=== PATIENT | female | born 1995 | race Caucasian/White ===

== ENCOUNTER 2017-08-10 18:56 | Emergency (ER) | payer OTHER ==
--- NOTE | 2017-08-10 20:18 | UC ---
Skin Complaint HPI - HPI Summary HPI Summary: 3 DAYS OF PAINFUL VESICULAR RASH LEFT UPPER BACK WRAPPING AROUND TO FRONT. TENDER. FEELS "BURNING". NOT ITCHY. NO NEW EXPOSURES. HAS SOME BODY ACHES AND FEELS "HOT". PT GOT VERY DRUNK PRIOR TO ONSET. IS A STUDENT AT [employer] SO HAS MODERATE AMOUNT OF STRESS AND DOES NOT ALWAYS GET ENOUGH REST. - History of Current Complaint Chief Complaint: UCSkin Time Seen by Provider: 08/10/17 19:52 Stated Complaint: SKIN COMPLAINT Hx Obtained From: Patient Onset/Duration: Sudden Onset, Lasting Days, Still Present Timing: Constant Onset Severity: Moderate Current Severity: Severe Pain Intensity: 10 Pain Scale Used: 0-10 Numeric Character: Pain, Redness Aggravating Factor(s): Touch Alleviating Factor(s): Nothing Associated Signs & Symptoms: Positive: Rash, Tenderness. Negative: Nausea, Fever - Allergy/Home Medications Allergies/Adverse Reactions: Allergies Allergy/AdvReac Type Severity Reaction Status Date / Time No Known Allergies Allergy Verified 08/10/17 19:45 Home Medications: Home Medications Etonogestrel [Nexplanon] 68 mg SQ DAILY 08/10/17 [History Confirmed 08/10/17] Oral Contraceptives DAILY 08/10/17 [History] Review of Systems Constitutional: Negative Skin: Rash Respiratory: Negative Cardiovascular: Negative Gastrointestinal: Negative Musculoskeletal: Myalgia All Other Systems Reviewed And Are Negative: Yes PMH/Surg Hx/FS Hx/Imm Hx Previously Healthy: Yes - Surgical History Surgical History: Yes Surgery Procedure, Year, and Place: umbilical hernia - Family History Known Family History: Positive: Hypertension, Diabetes - Social History Alcohol Use: Occasionally Substance Use Type: None Smoking Status (MU): Never Smoked Tobacco Physical Exam Triage Information Reviewed: Yes Appearance: Well-Appearing, Well-Nourished, Pain Distress - MILD Vital Signs: Initial Vital Signs Temp 99.7 F 08/10/17 19:38 Pulse 78 08/10/17 19:38 Resp 17 08/10/17 19:38 BP 122/82 08/10/17 19:38 Pulse Ox 100 08/10/17 19:38 Vital Signs Reviewed: Yes Eyes: Positive: Conjunctiva Clear ENT: Positive: Hearing grossly normal Neck: Positive: Supple Respiratory: Positive: No respiratory distress, No accessory muscle use Cardiovascular: Positive: Pulses Normal Abdomen Description: Positive: Soft Musculoskeletal: Positive: No Edema Neurological: Positive: Alert Psychological: Positive: Age Appropriate Behavior Skin: Positive: Other - VESICULAR LESIONS IN CLUSTERS LEFT UPPER BACK WRAPPING AROUND TO CHEST IN DERMATOMAL DISTRIBUTION. Course/Dx - Diagnoses Provider Diagnoses: SHINGLES Discharge - Sign-Out/Discharge Documenting (check all that apply): Discharge - Discharge Plan Condition: Stable Disposition: HOME Prescriptions: HYDROcodone/ACETAMIN 5-325 MG* [[place] 5-325 TAB*] 1 tab PO Q6H PRN #15 tab MDD 4 PRN Reason: Pain Valacyclovir HCl [Valacyclovir] 1 gm PO TID #21 tab Patient Education Materials: Shingles (ED) Forms: *School Release Referrals: No Primary Care Phys,NOPCP [Primary Care Provider] - Additional Instructions: FOLLOW-UP WITH [facility], YOUR PCP OR HERE IF YOU ARE NOT IMPROVING EXPECTED. - Billing Disposition and Condition Condition: STABLE Disposition: HOME
== END 2017-08-10 20:38 | disposition home or self-care (01) ==
LOC: UCCORT 18:56
DX: B02.9 Zoster without complications (principal)
CPT/HCPCS: 99202; G0463